=== PATIENT | female | born 1980 | race Two or more races ===

== ENCOUNTER 2021-12-13 20:44 | Emergency (ER) | payer OTHER, SELFPAY ==
--- NOTE | ~2021-12-13 | XR_ITS ---
EXAMINATION: XR CHEST CLINICAL INFORMATION: Cough COMPARISON: None TECHNIQUE: Frontal view of the chest was obtained. FINDINGS: No significant abnormality is noted involving the heart, lungs, mediastinum, bony thorax or soft tissues. XR/XR chest 1V IMPRESSION: Unremarkable examination.
[2021-12-13 20:47] VITALS: BP 136/89; PULSE 88; RESP 18; TEMP 36.7; O2SAT 99; BMI 38.7
[2021-12-13 21:12] LABS: COVID-19 Test Negative (Negative)
--- NOTE | 2021-12-13 21:15 | ED_ITS ---
HPI - URI/Sore Throat General Chief Complaint: Upper Respiratory Symptoms Stated Complaint: ?Bronchitis Time Seen by Provider: 12/13/21 21:14 History of Present Illness HPI Narrative: Patient is a 41-year-old female presented with coughing upper respiratory symptoms ongoing for the last 2 days. Cough nonproductive in nature. No history of asthma. Patient had her COVID vaccine x2. Positive generalized malaise. No nausea no vomiting or diarrhea. Patient from home. No significant past medical history on no medication. MD elicited complaint: cough and nasal congestion Related Data Previous Rx's Medication Instructions Recorded azithromycin 250 mg tablet See Rx Instructions .ROUTE 12/13/21 .COMPLEX #6 tab Allergies Allergy/AdvReac Type Severity Reaction Status Date / Time No Known Allergies Allergy Verified 12/13/21 20:47 Review of Systems Verdana 4l Review of Systems: Verdana 4d Positive coughing upper Verdana 4d respiratory symptoms Positive generalized malaise Verdana 4d Yes all other systems are reviewed and are negative [facility] Past Medical History Attestation statement: The following information was validated with the patient. Social History Social History Advance Directives: No Advance Directives Information Provided: No Patient : No Physical Exam Verdana 4l Vital Signs: Verdana 4d Verdana 4d Vital Signs: Verdana 4d Verdana 4Bd Last Vital Signs Verdana 4d Private Duty Aide New 4d Private Duty Aide New 4d Temp 98.1 F 12/13/21 20:47 Private Duty Aide New 4d Pulse 88 12/13/21 20:47 Private Duty Aide New 4d Resp 18 12/13/21 20:47 BP 136/89 12/13/21 20:47 Pulse Ox 99 12/13/21 20:47 BMI result Body Mass Index 38.7 Appearance: Alert. Oriented X3. No acute distress. Eyes: Pupils equal, round and reactive to light. ENT: Pharynx normal. Neck: Normal inspection. Neck supple. No lymph nodes noted. No crepitus CVS: Normal heart rate and rhythm. Pulses normal. Normal S1 and S2 Respiratory: No respiratory distress. Breath sounds normal. No Wheezing. No rales Abdomen: Soft and nontender. No rigidity. No distention. good BS x4 Skin: Skin warm and dry. Normal skin color. Normal skin turgor. Extremities: No lower extremity edema. Neurovascular intact to all extremities. No Lacerations. No Rash Neuro: Oriented X 3. No motor deficit. No sensory deficit. Moving all extermities. No slurred speech MDM - URI/Sore Throat MDM Narrative Medical decision making narrative: O2 sat is 99% on room air. Patient in no distress. Chest x-ray showed no focal infiltrate. Patient's COVID test was negative question bronchitis will discharge patient home. A Z-Miki was given. In stable condition Differential Diagnosis Differential diagnosis: Likely upper respiratory infection Medical Records Attestation: I reviewed the patient's medical records. Lab Data Attestation: I reviewed the patient's lab results. Labs: Lab Results 12/13/21 Range/Units 20:53 COVID-19 (JETHRO) Negative (Negative) COVID-19 Clin Com See Note Discharge Plan Discharge Clinical Impression: Bronchitis Patient Disposition: Home, Self-Care Instructions: Acute Bronchitis (ED) Prescriptions: New azithromycin 250 mg tablet See Rx Instructions .ROUTE .COMPLEX Qty: 6 0RF Rx Instructions: take 500 mg today (day 1), then 250 mg for 4 days (days 2-5) Referrals: Physician,Unknown J [Primary Care Provider] - 2 days
== END 2021-12-13 21:56 | disposition home or self-care (01) ==
PROVIDERS: Emergency Provider Emergency Medicine Emergency Medical Services
DX: J40 Bronchitis, not specified as acute or chronic (principal); Z20.822 Contact with and (suspected) exposure to COVID-19; Z79.899 Other long term (current) drug therapy
CPT/HCPCS: 71045; 87635; 99283

== ENCOUNTER 2024-08-28 14:27 | Outpatient (AMB) | payer OTHER, SELFPAY ==
--- NOTE | 2024-08-28 14:37 | AM.OFFWIN_ITS ---
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 Intake Note: Patient here for burning when urinating, foul smell which has been going on si nce . Patient Tobacco Use Status: Never used Tobacco Allergies No Known Allergies Allergy (Verified 08/28/24 14:44) Do you need a note to return to daycare/school/sports/work: No HPI HPI Comments History of Present Illness Details 43 y/o female patient who presents to [facility] walk in clinic with c/o urinary symptoms since . Reports Dsyuria, frequency and foul odor. Denies fevers, chills, nausea or vomiting. PFSH Social History Patient Tobacco Use Status: Never used Tobacco Review of Systems Const All systems reviewed & are unremarkable except as noted in HPI and below Physical Exam Vital Signs: Last Vital Signs Pulse 79 08/28/24 14:43 BP 138/70 08/28/24 14:43 Pulse Ox 100 08/28/24 14:43 Oxygen Delivery Method Room Air 08/28/24 14:43 BMI result Body Mass Index 26.5 Const General: cooperative and no acute distress Nutritional Appearance: overweight Orientation/consciousness: patient oriented x3 Other: Deferred Pelvic exam General: Yes no CVA tenderness Back/Spine/Pelvis Back: no CVA tenderness Skin General skin exam: no rashes or lesions noted Neuro General: patient oriented x3, gait normal and moves all extremities Psych Speech and movement: Normal speech and movement present Results AMB Urinalysis, Automated UA Leukoctes 0 Fredo/uL Last Edit by CATALINA Sparks on 08/28/24 14:49 UA Nitrite Negative Last Edit by CATALINA Sparks on 08/28/24 14:49 UA Urobilinogen 0.2 mg/dL Last Edit by CATALINA Sparks on 08/28/24 14:49 UA Protein 15 mg/dL Last Edit by CATALINA Sparks on 08/28/24 14:49 UA pH 6.0 Last Edit by CATALINA Sparks on 08/28/24 14:49 UA Blood 0 Theron/uL Last Edit by CATALINA Sparks on 08/28/24 14:49 UA Specific [place] 1.015 Last Edit by CATALINA Sparks on 08/28/24 14:49 UA Ketone Negative Last Edit by Eduard Zayas CCM on 08/28/24 14:49 UA Bilirubin 0 mg/dL Last Edit by Eduard Zayas [facility] on 08/28/24 14:49 UA Glucose 0 mg/dL Last Edit by Eduard Zayas [facility] on 08/28/24 14:49 Results Reviewed Results Reviewed: Laboratory Last Values Urine pH (Auto) 6.0 08/28/24 14:48 Specific [place] (Auto) 1.015 08/28/24 14:48 Urine Protein (Auto) 15 mg/dL 08/28/24 14:48 Glucose (UA)(Auto) 0 mg/dL 08/28/24 14:48 Urine Ketones (Auto) Negative 08/28/24 14:48 Urine Blood (Auto) 0 Theron/uL 08/28/24 14:48 Urine Nitrite (Auto) Negative 08/28/24 14:48 Urine Bilirubin (Auto) 0 mg/dL 08/28/24 14:48 Urine Urobilinogen (Auto) 0.2 mg/dL 08/28/24 14:48 Leukocyte Esterase (Auto) 0 Fredo/uL 08/28/24 14:48 Assessment & Plan Assessment & Plan (1) Urinary tract infection symptoms: Code(s): R39.9 - Unspecified symptoms and signs involving the genitourinary system Plan: Rapid Urinalysis negative. Advised to increase water intake Advised to take AZO OTC. Orders: Orders AMB Urinalysis Automated Today Z13.9 - Encounter for screening, unspecified Medications: Discontinued azithromycin Discontinued Reason: Patient Completed Course take 500 mg today (day 1), then 250 mg for 4 days (days 2-5) 6 tabs 0RF upper resp infection Coding Level of Care Code Est Pt Level 3 (59643) Diagnoses Urinary tract infection symptoms R39.9 Time Spent (min) 15
[2024-08-28 14:43] VITALS: BP 138/70; PULSE 79; O2SAT 100; BMI 26.5
== END 2024-08-28 15:25 | disposition home or self-care (01) ==
PROVIDERS: Visit Provider Nurse Practitioner Family
DX: Z13.9 Encounter for screening, unspecified (principal); R39.9 Unspecified symptoms and signs involving the genitourinary system

== ENCOUNTER → 2024-08-28 14:27 | Outpatient (BNVA) | payer OTHER, SELFPAY | PROVIDERS: Visit Provider Nurse Practitioner Family | DX: R39.9 Unspecified symptoms and signs involving the genitourinary system (principal) | CPT/HCPCS: 81003 ==

== ENCOUNTER 2025-10-04 21:44 | Emergency (ER) | payer OTHER, SELFPAY ==
--- OUTSIDE RECORDS SUMMARY | 2024-07-27 09:40 | XMS_ITS ---
Author Organization [facility] [employer] [facility] Address [address] [address] Care Team Providers Care Microbiology Technologist Name Role Phone GIGI Coelho, DENI Primary Care Provider Unavail able YONATHAN ESTRADA Unavailable [phone] REASON FOR VISIT ULTRA - HYPERTROPHY OF UTERUS Encounters Encounter Location Date Provider Diagnosis [facility] [employer] [facility] [address] [address] 07/27/2024 YONATHAN ESTRADA Plan Of Treatment No Information Progress Notes * LAVONNE SAMUELSADOB:1980 ([age] yo F)Acc No.[id number]:07/27/2024 PROGRESS NOTES Patient: ENOCH BAÑUELOS Provider: Sarah ESTRADA MD :1980 A ge:43 Y S ex:Female Date:07/27/2024 Address:[address] [place] [address] Pcp:DENI YU M.D. Subjective: * Chief Complaints: * 1 . ULTRA - HYPERTROPHY OF UTERUS. * Medical History: Objective: * Vitals: Assessment: Plan: * Treatment: * Images: Billing Information: * Visit Code: * Procedure Codes: * Electronic signature of YONATHAN ESTRADA MD on 10/04/2025 at 10:34 PM EST Sign off status: Pending * Provider: Sarah ESTRADA MD Date: 0 07/27/2024 Generated for Printi ng/Faxing/eTransmitting on: 1 12/04/2024 10:34 PM EST
--- OUTSIDE RECORDS SUMMARY | 2024-07-30 09:20 | XMS_ITS ---
Author Organization [employer] [facility] Address [address] [address] Care Team Providers Care Tray Delivery Aide Name Role Phone GIGI Coelho, DENI Primary Care Provider Unavail able YONATHAN ESTRADA Unavailable [phone] REASON FOR VISIT CONTRACEPTION TALK OPTIONS Encounters Encounter Location Date Provider Diagnosis [facility] [employer] [address] [address] 07/30/2024 YONATHAN ESTRADA Plan Of Treatment No Information Progress Notes * LAVONNE SAMUELSADOB:1980 ([age] yo F)Acc No.[id number]:07/30/2024 PROGRESS NOTES Patient: ENOCH BAÑUELOS Provider: Sarah ESTRADA MD :1980 A ge:43 Y S ex:Female Date:07/30/2024 Address:[address] [place] [address] Pcp:DENI YU M.D. Subjective: * Chief Complaints: * 1 . CONTRACEPTION TALK OPTIONS. * Medical History: Objective: * Vitals: Assessment: Plan: * Treatment: * Images: Billing Information: * Visit Code: * Procedure Codes: * Electronic signature of YONATHAN ESTRADA MD on 10/04/2025 at 10:34 PM EST Sign off status: Pending * Provider: Sarah ESTRADA MD Date: 0 07/30/2024 Generated for Aries armas/Chasity/eTransmitting on: 1 12/04/2024 10:34 PM EST
--- OUTSIDE RECORDS SUMMARY | 2024-09-25 09:30 | XMS_ITS ---
Author Organization [facility] Address [address] [place] [address] Care Team Providers Care Environmental Research Project Manager Name Role Phone GIGI Coelho, DENI Primary Care Provider Unavail able ESTRADA, LISA Unavailable [phone] REASON FOR VISIT CONTROL TALK Encounters Encounter Location Date Provider Diagnosis [facility] [address] [address] 09/25/2024 YONATHAN ESTRADA Encounter for other general counseling and advice on contraception Z30.09 Assessments Encounter Date Diagnosis (ICD Code) Assessment Notes Treatment Notes Treatment Clinical Notes Section Notes 09/25/2024 Encounter for other general counseling and advice on contraception (ICD-10 - Z30.09) Plan Of Treatment No Information Progress Notes * LAVONNE SAMUELSADOB:1980 ([age] yo F)Acc No.[id number]:09/25/2024 PROGRESS NOTES Patient: ENOCH BAÑUELOS Provider: Sarah ESTRADA MD :1980 A ge:43 Y S ex:Female Date:09/25/2024 Address:[address] [place], [place] [id number] Pcp:DENI YU M.D. Subjective: * Chief Complaints: * 1 . CONTROL TALK. * HPI: C onstitutional: Enoch is a 43 yo who was recently evaluated for heavy, painful menses and an enlarged uterus. The ultrasound showed a uterus measuring 7.8 x 7.3 x 7.6cm, with a cervical length of 3.5. The uterus also showed likely adenomyosis and a 3.7cm intramural fibroid. There were also 2 smaller subserosal fibroids, each smaller than 2cm. She is here to discuss options for improving her painful, heavy menses. Current contraception method: none, and she'd prefer to not be . She is not happy with her current method - she has heavy, painful menses. During the visit, the following areas of concern were addressed: Options discussed include combined oral contraceptive pills (estrogen/progesterone), progesterone only contraceptive pills, Ortho Evra patch, NuvaRing vaginal inserts, Depo-Provera injections, Implanon/Nexplanon, and IUDs as well as barrier options (male & female condoms, diaphragms) and periodic abstinence. Sterilization was also discussed. The risks and side effects of the methods and the relative risk/benefit ratio were discussed for each. She was advised of the importance of maintaining a monogamous relationship, and should discuss this with her partner, as well. She is also advised to continue using condoms with every sexual encounter to prevent infections. HORMONAL METHOD She was instructed in the proper initiation of the method and how to use, as well as the following side effects and potential complications, including headaches, nausea, irregular breakthrough bleeding for a few months, weight gain, risk of DVT, migraine headaches, cholelithiasis, hypertension. DEPOPROVERA Patient is counseled on Depo Provera, including: side effects, warning signs, frequency of injections and contraceptive protection for up to 13 weeks. She is aware that Depo-Provera will change her periods. It may cause irregular menses or unpredictable spotting for up to 6 months but 50% of women report amenorrhea after 1 year. Noncontraceptive benefits including less menstrual blood loss and decreased menstrual cramps. Potential side effects include weight gain, hair loss, depression (rare), localized pain and irritation. She is aware that there is risk of weight gain and counseled on importance of exercise and good food choices. Warnings including terminal manager use >2 years for increased risk to bone health. Reviewed the importance of avoiding smoking and adequate calcium intake in diet or calcium supplementation such as TUMS daily. Calcium is best absorbed late in the day with a glass of orange juice. She is aware fertility may be delayed after discontinuation of Depo (average of 10 months after last injection). She is aware she will need to go to the pharmacy to chicken picker medication. Counseled that the preferred start is during first 7 days from the start of menses. NEXPLANON: The risks of insertion were discussed, including but not limited to scar formation and infection. The likelihood of menstrual changes, such as irregular bleeding and amenorrhea were discussed. Other possible side effects such as mood swings, weight gain/loss, headaches and depression were discussed. Counseled that the preferred start is during first 7 days from the start of menses. IUD: She was instructed that this is best inserted at the end of a menses, and that she should call at the beginning of her next menses to make an appointment for insertion. DNA probe for chlamydia and gonorrhea was taken at this visit. Side effects and potential complications were discussed with her, including irregular bleeding, cramping, vaginal discharge, possibility of discomfort for partner during intercourse from strings, heavier or boat diesel motor mechanic menses, expulsion of IUD, uterine perforation with loss of IUD and potential for surgical removal, ectopic or tubal , infection with potential loss of future fertility. All questions answered to the patient's satisfaction. After careful consideration, she has chosen as her method of contraception. The total time of this visit was 30 minutes of which we spent 20 minutes in direct [id number] consultation discussing contraceptive options, preventing STDs and and the plan of care. * Medical History: P anic disorder [episodic paroxysmal anxiety], Polycystic ovarian syndrome, COVID- 19, Cervical high risk human papillomavirus (HPV) DNA test positive, Hypertrophy of uterus, Atypical squamous cells of undetermined significance on cytologic smear of cervix (ASC-US), Chlamydial infection, unspecified. Objective: * Vitals: Assessment: * Assessment: 1. E ncounter for other general counseling and advice on contraception - Z30.09 (Primary) ? Plan: * Treatment: * Images: Billing Information: * Visit Code: * Procedure Codes: * Electronic signature of YONATHAN ESTRADA MD on 10/04/2025 at 10:33 PM EST Sign off status: Pending * Provider: Sarah ESTRADA MD Date: 11/25/2023 Generated for Aries armas/Chasity/Aleksandraitting on: 12/04/2024 10:33 PM EST History and Physical Notes * HPI (History of Present Illness) Category Sub-Category Detail Notes Category Not es Constitutional Current contraception method: none, and she'd prefer to not be . She is not happy with her current method - she has heavy, painful menses. During the visit, the following areas of concern were addressed: Options discussed include combined oral contraceptive pills (estrogen/progesterone), progesterone only contraceptive pills, Ortho Evra patch, NuvaRing vaginal inserts, Depo-Provera injections, Implanon/Nexplanon, and IUDs as well as barrier options (male & female condoms, diaphragms) and periodic abstinence. Sterilization was also discussed. The risks and side effects of the methods and the relative risk/benefit ratio were discussed for each. She was advised of the importance of maintaining a monogamous relationship, and should discuss this with her partner, as well. She is also advised to continue using condoms with every sexual encounter to prevent infections. HORMONAL METHOD She was instructed in the proper initiation of the method and how to use, as well as the following side effects and potential complications, including headaches, nausea, irregular breakthrough bleeding for a few months, weight gain, risk of DVT, migraine headaches, cholelithiasis, hypertension. DEPOPROVERA Patient is counseled on Depo Provera, including: side effects, warning signs, frequency of injections and contraceptive protection for up to 13 weeks. She is aware that Depo-Provera will change her periods. It may cause irregular menses or unpredictable spotting for up to 6 months but 50% of women report amenorrhea after 1 year. Noncontraceptive benefits including less menstrual blood loss and decreased menstrual cramps. Potential side effects include weight gain, hair loss, depression (rare), localized pain and irritation. She is aware that there is risk of weight gain and counseled on importance of exercise and good food choices. Warnings including terminal manager use >2 years for increased risk to bone health. Reviewed the importance of avoiding smoking and adequate calcium intake in diet or calcium supplementation such as TUMS daily. Calcium is best absorbed late in the day with a glass of orange juice. She is aware fertility may be delayed after discontinuation of Depo (average of 10 months after last injection). She is aware she will need to go to the pharmacy to chicken picker medication. Counseled that the preferred start is during first 7 days from the start of menses. NEXPLANON: The risks of insertion were discussed, including but not limited to scar formation and infection. The likelihood of menstrual changes, such as irregular bleeding and amenorrhea were discussed. Other possible side effects such as mood swings, weight gain/loss, headaches and depression were discussed. Counseled that the preferred start is during first 7 days from the start of menses. IUD: She was instructed that this is best inserted at the end of a menses, and that she should call at the beginning of her next menses to make an appointment for insertion. DNA probe for chlamydia and gonorrhea was taken at this visit. Side effects and potential complications were discussed with her, including irregular bleeding, cramping, vaginal discharge, possibility of discomfort for partner during intercourse from strings, heavier or boat diesel motor mechanic menses, expulsion of IUD, uterine perforation with loss of IUD and potential for surgical removal, ectopic or tubal , infection with potential loss of future fertility. All questions answered to the patient's satisfaction. After careful consideration, she has chosen as her method of contraception. The total time of this visit was 30 minutes of which we spent 20 minutes in direct [id number] consultation discussing contraceptive options, preventing STDs and and the plan of care.
--- OUTSIDE RECORDS SUMMARY | 2024-10-16 09:30 | XMS_ITS ---
[facility] Address [address] [address] Care Team Providers Care Deputy Harbormaster Name Role Phone DENI YU M.D. Primary Care Provider Unavail able ESTRADA YONATHAN Unavailable [phone] REASON FOR VISIT CONTROL TALK Medications Medication SIG (Take, Route, Frequency, Duration) Notes Start Date End Date Status Mounjaro 10 MG/0.5ML Subcutaneous; Durat ion: 28 Days Active Citalopram Hydrobromide 20 MG Oral; Duration: 60 Days Acti ve Bactrim DS 800-160 MG 1 tablet Orally TW ICE A DAY; Duration: 7 days 09/03/2024 Active metroNIDAZOLE 0.75 % 1 applicatorful at bedtime Vaginal ONCE A NIGHT X 5; Duration: 5 days 08/30/2024 Active Problems Problem Type SNOMED Code ICD Code Onset Dates Problem Status W/U Status Risk Notes Problem Excessive and frequent menstruation (026260379) Excessive and frequent menstruation with regular cycle (N92.0) Active confirmed Encounters Encounter Location Date Provider Diagnosis [facility] [address] 10/16/2024 YONATHAN ESTRADA Excessive and freque nt menstruation with regular cycle N92.0 Assessments Encounter Date Diagnosis (ICD Code) Assessment Notes Treatment Notes Treatment Clinical Notes Section Notes 10/16/2024 Excessive and frequent menstruation with regular cycle (ICD-10 - N92.0) 10/16/2024 Other LYSTEDA: The following adverse drug reactions and incidences are derived from product labeling unless otherwise specified. As reported with oral formulation unless otherwise noted. More than 10%: - Gastrointestinal: Abdominal pain (20%) - Nervous system: Headache (50%) - Neuromuscular & skeletal: Back pain (21%), musculoskeletal pain (11%) - Respiratory: Nasal signs and symptoms (25%; including sinus symptoms) 1% to 10%: - Hematologic & oncologic: Anemia (6%) - Nervous system: Fatigue (5%) - Neuromuscular & skeletal: Arthralgia (7%), muscle cramps ( =7%), muscle spasm (=7%) Plan Of Treatment Treatment Notes Assessment Notes Other LYSTEDA: The following adverse drug reactions and incidences are derived from product labeling unless otherwise specified. As reported with oral formulation unless otherwise noted. More than 10%: - Gastrointestinal: Abdominal pain (20%) - Nervous system: Headache (50%) - Neuromuscular & skeletal: Back pain (21%), musculoskeletal pain (11%) - Respiratory: Nasal signs and symptoms (25%; including sinus symptoms) 1% to 10%: - Hematologic & oncologic: Anemia (6%) - Nervous system: Fatigue (5%) - Neuromuscular & skeletal: Arthralgia (7%), muscle cramps ( =7%), muscle spasm (=7%) Progress Notes * LAVONNE SAMUELSADOB:1980 ([age] yo F)Acc No.[id number]:10/16/2024 PROGRESS NOTES Patient: ENOCH BAÑUELOS Provider: Sarah ESTRADA MD :1980 A ge:43 Y S ex:Female Date:10/16/2024 Address:[address] [place] [address] Pcp:DENI YU M.D. Subjective: * Chief Complaints: [...] her painful, heavy menses. Current contraception method: none. Relationship status: . She does agree to have STI testing. During the visit, the following areas of [...] exercise and good food choices. 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 Counseled that the preferred start is [...] partner during intercourse from strings, heavier or print and pattern designer menses, expulsion of IUD, uterine perforation with loss of IUD and potential for surgical removal, ectopic or tubal , infection with potential loss of future fertility. All questions answered to the patient's satisfaction. L YSTEDA: This will not prevent The following adverse drug reactions and incidences are derived from product labeling unless otherwise specified. As reported with oral formulation unless otherwise noted. More than 10%: - Gastrointestinal: Abdominal pain (20%) - Nervous system: Headache (50%) - Neuromuscular & skeletal: Back pain (21%), musculoskeletal pain (11%) - Respiratory: Nasal signs and symptoms (25%; including sinus symptoms) 1% to 10%: - Hematologic & oncologic: Anemia (6%) - Nervous system: Fatigue (5%) - Neuromuscular & skeletal: Arthralgia (7%), muscle cramps ( =7%), muscle spasm (=7%). * Medical History: * Medications: T aking Citalopram Hydrobromide 20 MG Tablet Oral , Taking Mounjaro 10 MG/0.5ML Solution Pen-injector Subcutaneous , Taking metroNIDAZOLE 0.75 % Gel 1 applicatorful at bedtime Vaginal ONCE A NIGHT X 5 , Taking Bactrim DS 800-160 MG Tablet 1 tablet Orally TWICE A DAY Objective: * Vitals: Assessment: * Assessment: 1. E xcessive and frequent menstruation with regular cycle - N92.0 Plan: * Treatment: * Images: Billing Information: * Visit Code: * Procedure Codes: * Electronic signature of YONATHAN ESTRADA MD on 10/04/2025 at 10:33 PM EST Sign off status: Pending * Provider: Sarah ESTRADA MD Date: 12/17/2023 Generated for Aries armas/Chasity/Hannahsmitting on: 12/04/2024 10:33 PM EST History and Physical Notes * HPI (History of Present Illness) Category Sub-Category Detail Notes Category Not es Constitutional Current contraception method: none. Relationship status: . She does agree to have STI testing. During the visit, the following areas of [...] exercise and good food choices. 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 Counseled that the preferred start is [...] partner during intercourse from strings, heavier or print and pattern designer menses, expulsion of IUD, uterine perforation with loss of IUD and potential for surgical removal, ectopic or tubal , infection with potential loss of future fertility. All questions answered to the patient's satisfaction. LYSTEDA: This will not prevent The following adverse drug reactions and incidences are derived from product labeling unless otherwise specified. As reported with oral formulation unless otherwise noted. More than 10%: - Gastrointestinal: Abdominal pain (20%) - Nervous system: Headache (50%) - Neuromuscular & skeletal: Back pain (21%), musculoskeletal pain (11%) - Respiratory: Nasal signs and symptoms (25%; including sinus symptoms) 1% to 10%: - Hematologic & oncologic: Anemia (6%) - Nervous system: Fatigue (5%) - Neuromuscular & skeletal: Arthralgia (7%), muscle cramps ( =7%), muscle spasm (=7%)
[2025-10-04 21:52] VITALS: BP 136/81; PULSE 88; RESP 18; TEMP 36.4; O2SAT 99; BMI 24.8
--- NOTE | 2025-10-04 22:22 | ED.SKABFB ---
HPI - Skin/Abscess/Foreign Bdy General Chief complaint: Skin/Abscess/Foreign Body Stated complaint: Right middle finger infection Time Seen by Provider: 10/04/25 22:14 History of Present Illness ED Provider: Marilyn Mckeon HPI narrative: 44-year-old female with medical history significant for eczema presents to the ED for evaluation reporting 3 days of right middle finger swelling, redness and pain. She went to the urgent care center today because she noticed a small little pustules on the inside of her finger, and was given valacyclovir, Keflex, and mupirocin ointment. She reports she has taken 1 dose of these medications, but noted some increase in swelling and therefore she comes to the ED today. Denies fever, chills. No chest pain or pressure. No shortness of breath or abdominal pain. And tingling in the fingertip. She is fully able to extend and flex the finger. Reports concern with pain due to swelling, also reports it is still currently itching. Did not take anything for itching prior to ER arrival. Related Data Home Medications ?Medication ?Instructions ?Recorded ?Confirmed tirzepatide 10 mg/0.5 mL 10 mg subcut QWEEK 08/28/24 subcutaneous pen injector (Faviounmeg) Previous Rx's ?Medication ?Instructions ?Recorded ketorolac 10 mg tablet 10 mg PO Q8H PRN pain 5 days #15 10/04/25 tabs Allergies Allergy/AdvReac Type Severity Reaction Status Date / Time No Known Allergies Allergy Verified 10/04/25 22:00 Review of Systems Review of Systems: ROS is otherwise negative unless mentioned in HPI. [facility] Social History Social History Patient Tobacco Use Status: Never used Tobacco Advance Directives: No Advance Directives Information Provided: Yes Do you have a plan to hurt others: No Plan Physical Exam Exam: Exam: Nursing notes and vital signs reviewed. Constitutional: Well-appearing, NAD. Alert. Oriented X3. Eyes: EOMI. Neck: Normal inspection. Neck supple. CVS: Pulses normal. Respiratory: No respiratory distress. Skin: Skin warm and dry. Right hand middle finger with a pustule like rash. See photo. Mild streaking of redness to the top of the hand, does not extend past pre-drawn line. Extremities: No lower extremity edema. Neuro: Oriented X 3. No motor deficit. Vital Signs: Vital Signs: Last Vital Signs Temp 97.6 F 10/04/25 21:52 Pulse 88 10/04/25 21:52 Resp 18 10/04/25 21:52 BP 136/81 10/04/25 21:52 Pulse Ox 99 10/04/25 21:52 O2 Del Method Room Air 10/04/25 21:52 BMI result Body Mass Index 24.8 Medications Administered Discontinued Medications Generic Name Dose Route Start Last Admin Trade Name [place] PRN Reason Stop Dose Admin Diphenhydramine HCl 50 mg 10/04/25 22:28 10/04/25 22:36 Diphenhydramine Hcl 25 Mg Capsule PO 10/04/25 22:29 50 mg ONCE ONE Administration Ketorolac Tromethamine 30 mg 10/04/25 22:24 10/04/25 22:36 Ketorolac Tromethamine 30 Mg/Ml Vial IM 10/04/25 22:25 30 mg ONCE ONE Administration Medical Decision Making Medical Decision Making MDM Narrative: Overall she does appear well. The finger is swollen, there are small pustules. She tells me she took 1 dose of the antibiotics, has not taken anymore doses yet today, is scheduled to start taking more tomorrow. Reports that the finger is more swollen than it was earlier, and not as why she came back to the ED. No fever or chills. She is currently on valacyclovir, Keflex, and mupirocin topical ointment. This would cover all my suspected infections, and therefore she does not require any additional treatment. I did consider lab work, x-ray, however there was no trauma to the finger, she was itching it initially and likely opened the skin due to itching creating a wound, now in infection. She needs a full 24 hours of antibiotics, and has not yet given those time to work. We will administer a dose of Toradol IM while in the ED and discharge home on this medication for pain control. We discussed extensively return precautions to the ED, she is agreeable with plan of care. Differential Diagnosis Differential Diagnoses: The differential diagnosis associated with the presentation includes Flexor tenosynovitis, herpes rash, shingles rash, osteomyelitis, cellulitis, felon Admission/Observation Consideration of admission/observation: Escalation of care including admission/observation considered (not indicated) Independent Interpretation Interpretation: None Independent Historian Clinical information obtained from an independent historian. History obtained from or confirmed by: Spouse (at bedside) External Record Review External record reviewed: Office record (on paperwork, with patient) Prescription Management Has active script for abx-- does not require additional Chronic Conditions Patient?s care impacted by: Other (eczema) Social Determinants None Discharge Plan Discharge Clinical Impression: Cellulitis of finger of right hand Patient Disposition: Home, Self-Care Instructions: Cellulitis (ED) Additional Instructions: As we discussed, if you are unable to flex or extend the finger, the finger becomes more swollen or painful, you develop any extension of redness past the line on your finger, develop any fevers or chills, it is very important that you seek re-evaluation in the ED. Otherwise, we would like for you to use the antibiotics as prescribed to you by urgent care today. I have prescribed you a short course of Toradol that can be used as needed for pain, you may also use this in conjunction with oral Tylenol. In the ER we gave you a dose of Benadryl for the itching, you may use nondrowsy antihistamine such as Claritin, Zyrtec for the itching as well outpatient. Please follow up on Tuesday with a hand specialist. With any worsening complaints at any time, please seek re-evaluation in the ED. Prescriptions: New ketorolac 10 mg tablet 10 mg PO Q8H PRN (Reason: pain) 5 Days Qty: 15 0RF Rx Instructions: maximum total duration of 5 days from all oral, intranasal, or parenteral formulations No Action Mounjaro 10 mg/0.5 mL pen injector 10 mg subcut QWEEK Referrals: [facility] [Provider Group] Print Language: Japanese
--- OUTSIDE RECORDS SUMMARY | 2025-10-04 22:33 | XMS_ITS | Encounter Summary ---
[facility] [address] Address [address] [place] [address] Care Team Providers Care Industrial Economics Professor Name Role Phone Amanda Bethea MD Primary Care Provider [phone] Encounter Details Date Type Department Care Team ([facility] Contact Info) Description 09/10/2025 Results Follow-Up Walk-In Clinic - [facility] [address] [place], [place] [phone] Haja Buchanan, VANESA [address] [place] [address] Social History Tobacco Use Types Packs/Day Years Used Date Smoking Tobacco: Never Smokeless Tobacco: Never Alcohol Use Standard Drinks/Week Comments Yes 0 (1 standard drink = 0.6 oz pur e alcohol) Interpersonal Safety Answer Date Record ed Physical Abuse Unrecognized value 08/09/2025 Verbal Abuse Unrecognized value 08/09/2025 Comments No Sex and Gender Information Value Date Recorded Sex Assigned at Female 08/09/2025 6:53 AM EDT Legal Sex Female 11:43 PM EST Gender Identity Female 08/09/2025 6:53 AM EDT Sexual Orientation Not on file documented as of this encounter Plan of Treatment Upcoming Encounters Date Type Department Care Team ([facility] Contact Info) Description 03/06/2026 4:20 PM EDT Appointment Radiology Department - [address] [address] documented as of this encounter Visit Diagnoses Not on filedocumented in this encounter Care Teams Industrial Economics Professor Relationship Specialty Start Date End Date Amanda Bethea MD [address] [place] [address] PCP - General Internal Medicine 05/05/22 documented as of this encounter
--- OUTSIDE RECORDS SUMMARY | 2025-10-04 22:33 | XMS_ITS | Clinical Summary ---
Author Organization [facility] [address] [place] [address] Address [address] [place] [address] Phone Care Team Providers Care Print Finisher Name Role Phone Amanda Bethea MD Primary Care Provider [phone] Allergies No known active allergies Medications ferrous sulfate 325 mg (65 mg elemental iron) tablet TAKE 1 TABLET BY MOUTH EVERY DAY 4 Active tirzepatide (Mounjaro) 10 mg/0.5 mL injection Inject into the skin. Weight watchers Active citalopram (CeleXA) 20 mg tablet Take 1.5 tablets (30 mg total) by mouth 1 (one) time each day. 135 tablet 1 5 Active hydrOXYzine HCL (ATARAX) 10 mg tablet Take 1 tablet (10 mg total) by mouth 1 (one) time each day if needed for anxiety. 90 tablet 1 5 Active polyethylene glycol (Golytely) 236-22.74-6.74 -5.86 gram solution Take 4L by mouth once for one dose. May substitue any PEG. Starting at 2PM the day before your procedure drink 1 8oz glasses at your own pace until you complete half of the gallon. Finish 2nd half of the gallon at 8PM. 4000 mL 5 Active bisacodyL (DULCOLAX) 5 mg EC tablet Take 2 tablets by mouth right before beginning bowel prep. See instructions provided by the office 2 tablet 5 Active pantoprazole (PROTONIX) 40 mg EC tablet TAKE 1 TABLET(40 MG) BY MOUTH 1 TIME EACH DAY BEFORE BREAKFAST. DO NOT CRUSH, CHEW, OR SPLIT 30 tablet 5 Active phenazopyridin e (PYRIDIUM) 100 mg tablet Take 1 tablet (100 mg total) by mouth 3 (three) times a day with meals for 3 days. 9 tablet 5 09/11/20 25 metroNIDAZOLE (FLAGYL) 500 mg tabletIndicati ons:Bacterial vaginitis Take 1 tablet (500 mg total) by mouth 2 (two) times a day for 7 days. Do not use mouth wash or consume alcohol until 48 hours after last dose 14 each 5 09/17/20 25 Active Problems Problem Noted Date Diagnosed Date Night sweats 03/21/2025 Assessment & Plan (03/21/2025 3:42 PM EDT): Will obtain labs including FSH, estradiol, and prolactin. Patient is aware that this is not diagnostic for menopause, but could give information on what is likely perimenopause. We discussed medical management of sx, but she is not interested in starting anything at this time. Generalized anxiety disorder 02/21/2025 PCOS (polycystic ovarian syndrome) 09/21/2024 Assessment & Plan (03/21/2025 3:41 PM EDT): As long as having a period every 3 months at least, no need for hormones. Class 1 obesity due to exces s calories with body mass index (BMI) of 31.0 to 31.9 in adult 09/21/2024 History of sleeve gastrectomy 07/12/2022 Overview (03/21/2025): 07/09/22 Eating disorder, unspecified 04/09/2022 Overview (09/21/2024): Rebekah Lucero PhD Snoring 06/30/2021 Overview (09/21/2024): 06/2021 Home Sleep Study did not reveal sleep apnea or nocturnal hypoxia. Migraines 03/25/2020 Overview (09/21/2024): Follows with neurology (leela) B12 deficiency 04/19/2017 Iron deficiency anemia due to chronic blood loss 04/19/2017 Dyslipidemia 05/28/2016 Tattoo of skin 03/10/2015 Infertility associated with anovulation 02/22/20 14 Overview (09/21/2024): Followed at [facility] Encounters Date Type Department Care Team Description 09/10/2025 [facility] [phone] Haja Buchanan NP 09/10/2025 Results Follow-Up Walk-In Clinic - [address] [phone] Haja Buchanan NP 09/10/2025 Telephone Walk-In Clinic - [address] [phone] Jesus Ramsey PA 09/08/2025 10:00 AM EDT Office Visit Walk-In Clinic - [address] [phone] Jesus Ramsey PA Urinary frequency (Primary Dx); Dysuria 08/13/2025 Telephone Gastroenterology - [address] [phone] Luis Felipe Ontiveros MD 08/12/2025 Results Follow-Up Gastroenterology - [address] [phone] Angela Buckner MA 08/12/2025 Results Follow-Up Gastroenterology - [address] [phone] Luis Felipe Ontiveros MD 08/09/2025 8:16 AM EDT Anesthesia Event [facility] [address] [place] [phone] Haja Riggs DO 08/09/2025 6:56 AM EDT - 08/09/2025 11:59 PM EDT Hospital Encounter [facility] [address] [place] [address] Luis Felipe Ontiveros MD Decandio, Laura, CRNA Dasilva, John E, MD Abnormal UGI series; Colon cancer screening; S/P gastric sleeve procedure; Nausea Discharge Disposition: Home or Self Care 07/11/2025 2:40 PM EDT Consult Gastroenterology - [facility] [address] [facility] [address] [place] [address] Stephanie Escobedo NP Abnormal upper gastrointestinal barium series (Primary Dx); Gastroesophageal reflux disease, unspecified whether esophagitis present; Screening for colorectal cancer from Last 3 Months Immunizations Immunization Administration Dates Next Due Influenza trivalent, 0.5mL, preservative free (Fluarix; FluLaval; Fluzone) ages 6mo and older (Afluria) 3 years and older 08/24/2024,09/17/2020 Tdap Tetanus diptheria acell ular pertussis (Boostrix; Adacel) 7yo and older 03/10/2015 Surgical History Surgery Date Site/Laterality Comments SECTION 1995 PROCEDURE: HISTORICAL DELIVERY BREAST REDUCTION 2004 Bilateral PROCEDURE: AL BREAST REDUCTION; COMMENT: breast reduction surgery BARIATRIC SURGERY 07/09/2022 PROCEDURE: AL LAPS GSTRC RSTRICTIV PX LONGITUDINAL GASTRECTOMY; COMMENT: sleeve gastrectmy for bariatric care Medical History Medical History Date Comments PCOS (polycystic ovarian syndrome) DX:PCOS (polycystic ovarian syndrome); COMMENT: IVF at [facility] Infertility associated with anovulation DX:Infertility associated wi th anovulation Obesity (BMI 35.0-39.9 witho ut comorbidity) 04/25/2018 DX:Obesity (BMI 35.0-39.9 wi thout comorbidity) Mixed hyperlipidemia DX:Mixed hy perlipidemia Iron deficiency anemia DX:Iron d eficiency anemia Eating disorder, unspecified 04/09/2022 DX: Eating disorder, unspecified; COMMENT: Rebekah Lucero PhD B12 deficiency 04/19/2017 DX:B12 deficienc y Class 3 severe obesity due t o excess calories with body mass index (BMI) of 40.0 to 44.9 in adult (CMS/HCC V24, CMS/HCC V28) 05/10/2019 DX:Class 3 severe obesity du e to excess calories with body mass index (BMI) of 40.0 to 44.9 in adult ([facility]) Dyslipidemia 05/28/2016 DX:Dyslipidemia Migraines 03/25/2020 DX:Migraines; CO MMENT: Follows with neurology (leela) Personal history of COVID-19 02/23/2022 DX: Personal history of COVID-19 Snoring 06/30/2021 DX:Snoring; COMM ENT: 06/2021 Home Sleep Study did not reveal sleep apnea or nocturnal hypoxia. Tattoo of skin 03/10/2015 DX:Tattoo of ski n Severe obesity (BMI 35.0-39. 9) with comorbidity (CMS/HCC V24, CMS/HCC V28) 05/10/2019 DX:Severe obesity (BMI 35.0- 39.9) with comorbidity ([facility]) History of sleeve gastrectomy 07/12/2022 DX :History of sleeve gastrectomy; COMMENT: 07/09/22 Family History Medical History Relation Name Comments Breast cancer Maternal Grandmother Diabetes Maternal Grandmother Other: Lupus Sister 1 half paternal Colon cancer Neg Hx Heart attack Neg Hx Ovarian cancer Neg Hx Pancreatic cancer Neg Hx Prostate cancer Neg Hx Stroke Neg Hx Uterine cancer Neg Hx Relation Name Status Comments Brother 1 Alive healthy Brother 2 Alive half brothers x 2 (paternal); healthy Daughter Alive 1995; ; healthy Father Alive healthy Maternal Grandfather Alive unknown Maternal Grandmother [place] [address], DM Mother unknown Paternal Grandfather Paternal Grandmother Sister 1 Sister 2 Alive half sisters (p aternal) x 4; 1 with Lupus Social History Tobacco Use Types Packs/Day Years Used Date Smoking Tobacco: Never Smokeless Tobacco: Never Tobacco Cessation:Counseling Given: Not Answered Alcohol Use Standard Drinks/Week Comments Yes 0 [...] AM EDT Sexual Orientation Not on file Obstetrics History * This document contains information received from the source organization and may not represent a complete record from that organization. Para Term AB IAB SAB Ectopic Multiple Livin g Live Births 2 1 1 0 0 0 0 0 Date Outcome GA Total Labor Labor/2nd/3rd Weight Sex Type Anes PTL Pearl A1 A5 Name Clin Term Last Filed Vital Signs Vital Sign Reading Time Taken Comments Blood Pressure 108/70 09/08/2025 10:22 AM EDT Pulse 68 09/08/2025 10:22 AM EDT Temperature 36.4 C (97.6 F) 09/08/2025 10:22 AM EDT Respiratory Rate 14 08/09/2025 8:57 AM EDT Oxygen Saturation 99% 09/08/2025 10:22 AM EDT Inhaled Oxygen Concentration - - Weight 63.5 kg (140 lb) 08/09/2025 7:33 AM EDT Height 157.5 cm (5' 2 ) 08/09/2025 7:33 AM EDT Body Mass Index 25.61 08/09/2025 7:33 AM EDT Plan of Treatment Upcoming Encounters Date Type Department Care Team (Late st Contact Info) Description 03/06/2026 4:20 PM EDT Appointment Radiology Department [address] [phone] Health Maintenance Due Date Last Done Comments Hepatitis B Vaccines (1 of 3 - 19+ 3-dose series) 1998 HPV Vaccines (1 - 3-dose SCDM series) 2006 Social Influencers of Health Screening 10/23/2022 Depression Screening 11/14/2024 DTaP,Tdap,and Td Vaccines (2 - Td or Tdap) 03/10/2025 03/10/2015 COVID-19 Vaccine ( season) 2025 03/22/2022, 01/09/2021, 12/12/2020 Influenza Vaccine (#1) 2025 , 08/22/2023, 09/19/2022, Additional history exists Breast Cancer Screening 03/14/2027 03/14/20 25, 02/28/2025, 02/11/2024, Additional history exists Cervical Cancer Screening: Pap Smear 07/19/2027 07/19/2024, 04/19/2017 Cholesterol Screening (Lipid Panel) 02/08/2030 02/08/2025, 02/10/2024 Colorectal Cancer Screening: Colonoscopy 08/09/2035 08/09/2025 RSV Immunization Adult Patients (1 - 1-dose 75+ series) 2054 HIV Screening Completed 07/24/2021 Hepatitis C Screening Completed 07/24/2021 HIB Vaccines Aged Out No longer eligi ble based on patient's age to complete this topic Hepatitis A Vaccines Aged Out No long er eligible based on patient's age to complete this topic IPV Vaccines Aged Out No longer eligi ble based on patient's age to complete this topic MMR Vaccines Aged Out No longer eligi ble based on patient's age to complete this topic Meningococcal ACWY Vaccine Aged Out N o longer eligible based on patient's age to complete this topic Meningococcal B Vaccine Aged Out No l onger eligible based on patient's age to complete this topic Pneumococcal Vaccine: Pediatrics (0 to 5 Years) and At-Risk Patients (6 to 49 Years) Aged Out No longer eligible based on patient's age to complete this topic RSV Immunization Patients Under 20 months Aged Out No longer eligible based on patient's age to complete this topic Varicella Vaccines Aged Out No longer eligible based on patient's age to complete this topic Procedures Procedure Name Priority Date/Time Associated Diagnosis Comments POC URINE NON-AUTO W/O MICRO Routine 09/08/2025 10:52 AM EDT Dysuria CHLAMYDIA TRACHOMATIS AND NEISSERIA GONORRHOEAE PCR Routine 09/08/2025 10:52 AM EDT Urinary frequency Dysuria VAGINITIS PATHOGENS BY PCR Routine 09/08/2025 10:49 AM EDT Dysuria CULTURE URINE Routine 09/08/2025 10:49 AM EDT Dysuria COLONOSCOPY Routine 08/09/2025 8:36 AM EDT Abnormal UGI series Colon cancer screening S/P gastric sleeve procedure Nausea EGD Routine 08/09/2025 8:36 AM EDT Abnormal UGI series Colon cancer screening S/P gastric sleeve procedure Nausea TISSUE EXAM Routine 08/09/2025 8:32 AM EDT Abnormal UGI series Colon cancer screening S/P gastric sleeve procedure Nausea MG MAMMO DIAGNOSTIC ADDL VIEWS RIGHT Routine 03/14/2025 3:24 PM EDT Abnormal mammogram LIPID PANEL WITH REFLEX TO DIRECT LDL Routine 02/08/2025 9:42 AM EDT B12 deficiency Iron deficiency anemia due to chronic blood loss Shaking Dyslipidemia HM PAP SMEAR Routine 07/19/2024 HEPATITIS C SCREENING Routine 07/24/2021 HIV SCREENING Routine 07/24/2021 from Last 3 Months or Most Recently Relevant to Health Maintenance Results * Chlamydia trachomatis and Neisseria gonorrhoeae molecular study (09/08/2025 10:52 AM EDT) Pathologist [facility] Neisseria gonorrhoeae PCR Negative Negative LAB MOLECULAR DIAGNOSTICS METHOD 09/09/2025 9:25 AM EDT [facility] Chlamydia trachomatis PCR Negative Negative LAB MOLECULAR DIAGNOSTICS METHOD 09/09/2025 9:25 AM EDT [facility] Urine Urine specimen from urethra / Unknown Non-blood Collection / Unknown 09/08/2025 10:52 AM EDT 09/08/2025 10:52 AM EDT us Jesus REBOLLEDO LAB MICROBIOLOGY - GENERAL ORDER JAZ Final Result [facility] [address] [place] [address], * (ABNORMAL) POC Urine Non-Auto W/O Micro (09/08/2025 10:52 AM EDT) GLUCOSE POC Negative Negative, Trace mg/dL Leukocytes UA POC 1+(A) Negative mg/dL Nitrite UA POC Negative Urobilinogen UA POC 0.2 E.U./dL mg/dL Protein UA POC Positive Positive, Negative PH UA POC 7.0 LUPE/HM UA POC Trace(A) Negative Specific Sumner UA POC 1.015 Ketones UA POC Negative Negative Bilirubin UA POC Negative Negative Urine Urine specimen obtained by clean catch procedure / Unknown 09/08/2025 10:52 AM EDT us Jesus REBOLLEDO POINT OF CARE TEST ENTER/EDIT OR DERABLES Final Result * (ABNORMAL) Vaginitis pathogens molecular study (09/08/2025 10:49 AM EDT) Trichomonas vaginalis Negative Negative 09/09/2025 9:26 AM EDT [facility] Gardnerella vaginalis Positive(A) Negative 09/09/2025 9:26 AM EDT [facility] Belinda Species Negative Negative 9:26 AM EDT [facility] Swab Vaginal structure / Unknown Non-blood Collection / Unknown 09/08/2025 10:49 AM EDT 09/08/2025 10:49 AM EDT us Jesus REBOLLEDO LAB MICROBIOLOGY - GENERAL ORDER JAZ Final Result [facility] [address] [place] [address], * Culture urine (09/08/2025 10:49 AM EDT) Culture, Urine <10,000 CFU/mL gram negative bacilli, insignificant count, no further workup 09/09/2025 1:17 PM EDT [facility] Urine Urine specimen obtained by clean catch procedure / Unknown Non-blood Collection / Unknown 09/08/2025 10:49 AM EDT 09/08/2025 10:49 AM EDT us Jesus REBOLLEDO LAB MICROBIOLOGY - GENERAL ORDER JAZ Final Result [facility] [address] [place] [address], * COLONOSCOPY Anesthesia - MAC; [facility] ENDOSCOPY (08/09/2025 8:36 AM EDT) Anatomical Region Laterality Modality Other 08/09/2025 8:22 AM EDT Impressions 08/09/2025 8:28 AM EDT - Preparation of the colon was poor. - Stool in the sigmoid colon. - No specimens collected. Recommendation: - Repeat colonoscopy in 3 months for screening purposes and because the bowel preparation was suboptimal. Narrative 08/09/2025 8:28 AM EDT [facility] GI Patient Name: Brandon Espinoza Procedure Date: 08/09/2025 8:22 AM Date of : 1980 Age: 44 Room: ROOM 14 Gender: Female Note Status: Finalized Attending MD: Luis Felipe Ontiveros MD, Procedure Date No Time: 08/09/2025 Procedure: Colonoscopy Indications: Screening for colorectal malignant neoplasm Providers: Luis Felipe Ontiveros MD Referring MD: Luis Felipe Ontiveros MD Medicines: Propofol per Anesthesia Complications: No immediate complications. Estimated Blood Loss: Estimated blood loss: none. Procedure: Pre-Anesthesia Assessment: - ASA Grade Assessment: II - A patient with mild systemic disease. - ASA Grade Assessment: II - A patient with mild systemic disease. After I obtained informed consent, the scope was passed under direct vision. Throughout the procedure, the patient's blood pressure, pulse, and oxygen saturations were monitored continuously.The Colonoscope was introduced through the anus with the intention of advancing to the cecum. The scope was advanced to the sigmoid colon before the procedure was aborted. Medications were given. The colonoscopy was performed without difficulty. The patient tolerated the procedure well. The quality of the bowel preparation was poor. Findings: The perianal and digital rectal examinations were normal. Copious quantities of solid stool was found in the sigmoid colon, precluding visualization. Procedure Code(s): --- Professional --- G0121, 53, Colorectal cancer screening; colonoscopy on individual not meeting criteria for high risk Diagnosis Code(s): --- Professional --- Z12.11, Encounter for screening for malignant neoplasm of colon CPT copyright 2020 [employer]. All rights reserved. The codes documented in this report are preliminary and upon sheet manager review may be revised to meet current compliance requirements. Luis Felipe Ontiveros MD 08/09/2025 8:28:42 AM This report has been signed electronically.Luis Felipe Ontiveros MD Number of Addenda: 0 Note Initiated On: 08/09/2025 8:22 AM Scope In: Scope Out: Endoscopy Department at [facility] - [address] [place] [id number] Procedure Note Luis Felipe Ontiveros MD - 08/09/2025 [facility] GI Patient Name: Brandon Espinoza Procedure Date: 08/09/2025 8:22 AM Date of : 1980 Age: 44 Room: ROOM 14 Gender: Female Note Status: Finalized Attending MD: Luis Felipe Ontiveros MD, Procedure Date No Time: 08/09/2025 Procedure: Colonoscopy Indications: Screening for colorectal malignant neoplasm Providers: Luis Felipe Ontiveros MD Referring MD: Luis Felipe Ontiveros MD Medicines: Propofol per Anesthesia Complications: No immediate complications. Estimated Blood Loss: Estimated blood loss: none. Procedure: Pre-Anesthesia Assessment: - ASA Grade Assessment: II - A patient with mild systemic disease. - ASA Grade Assessment: II - A patient with mild systemic disease. After I obtained informed consent, the scope was passed under direct vision. Throughout theprocedure, the patient's blood pressure, pulse, and oxygen saturations were monitored continuously.The Colonoscope was introduced through the anus withthe intention of advancing to the cecum. The scope was advanced to the sigmoid colon before the procedurewas aborted. Medications were given. The colonoscopywas performed without difficulty. The patient tolerated the procedure well. The quality of the bowel preparation was poor. Findings: The perianal and digital rectal examinations were normal. Copious quantities of solid stool was found in the sigmoid colon, precluding visualization. Procedure Code(s): --- Professional --- G0121, 53, Colorectal cancer screening; colonoscopyon individual not meeting criteria for high risk Diagnosis Code(s): --- Professional --- Z12.11, Encounter for screening for malignantneoplasm of colon CPT copyright 2020 [employer]. All rights reserved. The codes documented in this report are preliminary and upon sheet manager reviewmay be revised to meet current compliance requirements. Luis Felipe Ontiveros MD 08/09/2025 8:28:42 AM This report has been signed electronically.Luis Felipe Ontiveros MD Number of Addenda: 0 Note Initiated On: 08/09/2025 8:22 AM Scope In: Scope Out: Endoscopy Department at [facility] - [address] [place] [phone] IMPRESSION: - Preparation of the colon was poor. - Stool in the sigmoid colon. - No specimens collected. Recommendation: - Repeat colonoscopy in 3 months for screening purposes and because the bowel preparation was suboptimal. Luis Felipe Ontiveros MD GI~PROCEDURE ORDERABLES Fin al Result * EGD Anesthesia - MAC; [facility] ENDOSCOPY (08/09/2025 8:36 AM EDT) Anatomical Region Laterality Modality Other 08/09/2025 8:28 AM EDT Impressions 08/09/2025 8:37 AM EDT - Normal esophagus. - A sleeve gastrectomy was found, characterized by healthy appearing mucosa. - Gastritis. Biopsied. - Normal examined duodenum. Recommendation: - Await pathology results. - Continue present medications. Narrative 08/09/2025 8:37 AM EDT [facility] GI Patient Name: Brandon Espinoza Procedure Date: 08/09/2025 8:28 AM Date of : 1980 Age: 44 Room: ROOM 14 Gender: Female Note Status: Finalized Attending MD: Luis Felipe Ontiveros MD, Procedure Date No Time: 08/09/2025 Procedure: Upper GI endoscopy Indications: Epigastric abdominal pain, Abnormal UGI series Providers: Luis Felipe Ontiveros MD Referring MD: Luis Felipe Ontiveros MD Medicines: Propofol per Anesthesia Complications: No immediate complications. Estimated Blood Loss: Estimated blood loss: none. Procedure: Pre-Anesthesia Assessment: - ASA Grade Assessment: II - A patient with mild systemic disease. After obtaining informed consent, the endoscope was passed under direct vision. Throughout the procedure, the patient's blood pressure, pulse, and oxygen saturations were monitored continuously.The Endoscope was introduced through the mouth, and advanced to the second part of duodenum. The upper GI endoscopy was accomplished without difficulty. The patient tolerated the procedure well. Findings: The esophagus was normal. Evidence of a sleeve gastrectomy was found in the stomach. This was characterized by healthy appearing mucosa. Localized mild inflammation characterized by congestion (edema), erythema and granularity was found in the gastric body. Biopsies were taken with a cold forceps for histology. The exam of the stomach was otherwise normal. There was no stricture. The examined duodenum was normal. Procedure Code(s): --- Professional --- 59983, Esophagogastroduodenoscopy, flexible, transoral; with biopsy, single or multiple Diagnosis Code(s): --- Professional --- Z98.84, Bariatric surgery status K29.70, Gastritis, unspecified, without bleeding R93.3, Abnormal findings on diagnostic imaging of other parts of digestive tract R10.13, Epigastric pain CPT copyright 2020 [employer]. All rights reserved. The codes documented in this report are preliminary and upon sheet manager review may be revised to meet current compliance requirements. Luis Felipe Ontiveros MD 08/09/2025 8:37:00 AM This report has been signed electronically.Luis Felipe Ontiveros MD Number of Addenda: 0 Note Initiated On: 08/09/2025 8:28 AM Scope In: Scope Out: Endoscopy Department at [facility] - [address] [place] [phone] Procedure Note Luis Felipe Ontiveros MD - 08/09/2025 [facility] GI Patient Name: Brandon Espinoza Procedure Date: 08/09/2025 8:28 AM Date of : 1980 Age: 44 Room: ROOM 14 Gender: Female Note Status: Finalized Attending MD: Luis Felipe Ontiveros MD, Procedure Date No Time: 08/09/2025 Procedure: Upper GI endoscopy Indications: Epigastric abdominal pain, Abnormal UGI series Providers: Luis Felipe Ontiveros MD Referring MD: Luis Felipe Ontiveros MD Medicines: Propofol per Anesthesia Complications: No immediate complications. Estimated Blood Loss: Estimated blood loss: none. Procedure: Pre-Anesthesia Assessment: - ASA Grade Assessment: II - A patient with mild systemic disease. After obtaining informed consent, the endoscope was passed under direct vision. Throughout theprocedure, the patient's blood pressure, pulse, and oxygen saturations were monitored continuously.TheEndoscope was introduced through the mouth, and advanced tothe second part of duodenum. The upper GI endoscopy was accomplished without difficulty. The patienttolerated the procedure well. Findings: The esophagus was normal. Evidence of a sleeve gastrectomy was found in the stomach. This was characterized by healthyappearing mucosa. Localized mild inflammation characterized by congestion (edema), erythema and granularity wasfound in the gastric body. Biopsies were taken with acold forceps for histology. The exam of the stomach was otherwise normal. There was no stricture. The examined duodenum was normal. Procedure Code(s): --- Professional --- 63427, Esophagogastroduodenoscopy, flexible, transoral; with biopsy, single or multiple Diagnosis Code(s): --- Professional --- Z98.84, Bariatric surgery status K29.70, Gastritis, unspecified, without bleeding R93.3, Abnormal findings on diagnostic imaging of other parts of digestive tract R10.13, Epigastric pain CPT copyright 2020 [employer]. All rights reserved. The codes documented in this report are preliminary and upon sheet manager reviewmay be revised to meet current compliance requirements. Luis Felipe Ontiveros MD 08/09/2025 8:37:00 AM This report has been signed electronically.Luis Felipe Ontiveros MD Number of Addenda: 0 Note Initiated On: 08/09/2025 8:28 AM Scope In: Scope Out: Endoscopy Department at [facility] - [address] [place] [phone] IMPRESSION: - Normal esophagus. - A sleeve gastrectomy was found, characterized by healthy appearing mucosa. - Gastritis. Biopsied. - Normal examined duodenum. Recommendation: - Await pathology results. - Continue present medications. us Luis Felipe Ontiveros MD GI~PROCEDURE ORDERABLES Fin al Result * Tissue exam (08/09/2025 8:32 AM EDT) Final Diagnosis Stomach, gastric body biopsies : Oxyntic type gastric mucosa with changes suggestive of PPI effect. No Helicobacter pylori type gastritis identified. 08/12/2025 9:29 AM EDT [facility] at 0929 EDT Gross Description A. Stomach, biopsies gastric body: Labeled biopsies stomach . Received in formalin are two soft, mahoney-red tissue fragments measuring approximately 0.25 cm in greatest diameter, which are wrapped in paper and submitted in toto in one cassette, two pieces, multiple levels. TS 08/12/2025 9:29 AM EDT [facility] Disclaimer Unless otherwise specified, all tissue is 10% NB formalin fixed and paraffin embedded. 08/12/2025 9:29 AM EDT [facility] Tissue Stomach structure / Unknown 08/09/2025 8:32 AM EDT 08/09/2025 10:34 AM EDT us Luis Felipe Ontiveros MD LAB PATHOLOGY ORDERABLES Fi nal Result [facility]) [facility] [address] [place] [address], * MG Mammo Diagnostic Addl Views Right (03/14/2025 3:24 PM EDT) Anatomical Region Laterality Modality Breast Right Mammography 03/14/2025 3:26 PM EDT Impressions 03/14/2025 3:43 PM EDT Benign. Findings and recommendations were conveyed to the patient. BI-RADS CATEGORY: 2 - BENIGN RECOMMENDATION: Return to annual mammography. Return to annual mammography. Return to annual mammography. Return to annual mammography. Mammo Location: [facility], [address] [place] [address], [address], . -------- FINAL REPORT -------- Dictated By: Angelic Watts Dictated Date: 03/14/2025 15:26 ET Assigned Physician: Angelic Watts Reviewed and Electronically Signed By: Angelic Watts Signed Date: 03/14/2025 15:43 ET Workstation ID: [id number] Transcribed By: Self Edit Transcribed Date: 03/14/2025 15:40 ET Narrative 03/14/2025 3:43 PM EDT CLINICAL: 44 years old, Female, focal asymmetries in the upper outer and lower inner right breast. History remote reduction mammoplasty. COMPARISON: Mammograms 02/28/2025 and 02/11/2024. FINDINGS: MAMMOGRAPHY TECHNIQUE: ML, spot compression MLO, and spot compression CC views of the right breast were obtained digitally with 3-D mammogram (digital breast tomosynthesis). Computer-aided detection was utilized in evaluation of this exam (CAD). Focal asymmetry in the upper right breast partially effaces. Focal asymmetry in the anterior lower right breast is a persistent finding. BREAST DENSITY: B - There are scattered areas of fibroglandular density. ULTRASOUND TECHNIQUE: Ultrasound survey evaluation of the upper outer right breast and lower inner right breast was performed. There is no evidence of morphologically suspicious mass. There is a 1.4 x 1.1 x 0.2 cm septated cyst versus cluster of tiny cysts at the 10 o'clock position 6 cm from the nipple, and this corresponds to the focal asymmetry in the upper-outer right breast. No ultrasound abnormality is seen in the medial lower right breast, and the mammographic finding likely represents postoperative scarring. Procedure Note Angelic Watts MD - 03/14/2025 CLINICAL: 44 years old, Female, focal asymmetries in the upper outer andlower inner right breast. History remote reduction mammoplasty. COMPARISON: Mammograms 02/28/2025 and 02/11/2024. FINDINGS: MAMMOGRAPHY TECHNIQUE: ML, spot compression MLO, and spot compression CC views of theright breast were obtained digitally with 3-D mammogram (digital breasttomosynthesis). Computer-aided detection was utilized in evaluation ofthis exam (CAD). Focal asymmetry in the upper right breast partially effaces. Focalasymmetry in the anterior lower right breast is a persistent finding. BREAST DENSITY: B - There are scattered areas of fibroglandular density. ULTRASOUND TECHNIQUE: Ultrasound survey evaluation of the upper outer right breastand lower inner right breast was performed. There is no evidence of morphologically suspicious mass. There is a 1.4 x 1.1 x 0.2 cm septated cyst versus cluster of tiny cystsat the 10 o'clock position 6 cm from the nipple, and this corresponds tothe focal asymmetry in the upper-outer right breast. No ultrasound abnormality is seen in the medial lower right breast, andthe mammographic finding likely represents postoperative scarring. IMPRESSION: Benign. Findings and recommendations were conveyed to the patient. BI-RADS CATEGORY: 2 - BENIGN RECOMMENDATION: Return to annual mammography. Return to annual mammography. Return toannual mammography. Return to annual mammography. Mammo Location: [facility], [address] [place] [address], [address], . -------- FINAL REPORT -------- Dictated By: Angelic Watts Dictated Date: 03/14/2025 15:26 ET Assigned Physician: Angelic Watts Reviewed and Electronically Signed By: Angelic Watts Signed Date: 03/14/2025 15:43 ET Workstation ID: [id number] Transcribed By: Self Edit Transcribed Date: 03/14/2025 15:40 ET us Amanda Bethea MD IM BI PROCEDURES Final Result * Lipid panel with reflex to direct LDL (02/08/2025 9:42 AM EDT) Cholesterol 142 0 - 200 mg/dL LAB CHEMISTRY METHOD 02/08/2025 2:23 PM EDT [facility] Triglycerides 68 0 - 150 mg/dL LAB CHEMISTRY METHOD 02/08/2025 2:23 PM EDT [facility] HDL 55 >=40 mg/dL LAB CHEMISTRY METHOD 02/08/2025 2:23 PM EDT [facility] LDL Calculated 73 0 - 100 mg/dL LAB CHEMISTRY METHOD 02/08/2025 2:23 PM [facility] VLDL Cholesterol Sergei 13.6 mg/dL LAB CHEMISTRY METHOD 02/08/2025 2:23 PM EDT [facility] Non HDL Chol. (LDL+VLDL) 87 <145 mg/dL LAB CHEMISTRY METHOD 02/08/2025 2:23 PM EDT [facility] Chol/HDL Ratio 2.6 0.0 - 4.4 LAB CHEMISTRY METHOD 02/08/2025 2:23 PM EDT [facility] Blood Venous blood specimen / Unknown Venipuncture / Unknown 02/08/2025 9:42 AM EDT 02/08/2025 9:42 AM EDT Amanda Bethea MD LAB BLOOD ORDERABLES Final Resul t [facility] [address] [place] [address], [place] [phone] * Pap Smear (07/19/2024) Pap smear Abstracted, Negative Historical [facility] HEALTH MAINTENANCE Final Result * HIV Screening (07/24/2021) Pathologist [facility] HIV Screening Abstracted Historical Provider HEALTH MAINTENANCE Final Result * Hepatitis C Screening (07/24/2021) Pathologist [facility] Hepatitis C Screening Abstracted Historical Provider HEALTH MAINTENANCE Final Result from Last 3 Months or Most Recently Relevant to Health Maintenance Insurance * Guarantor: Brandon Espinoza Account Type Relation to Patient Date of Phone Billing Address Personal/Family Self 1980 [phone] (Work) [address] [place] [address] [employer] Care Teams Print Finisher Relationship Specialty Start Date End Date Amanda Bethea MD [address] [place] [phone] PCP - General Internal Medicine 05/05/22
--- OUTSIDE RECORDS SUMMARY | 2025-10-04 22:33 | XMS_ITS | Clinical Summary ---
Author Organization [facility] Address [address] [place] [phone] Phone Care Team Providers Care Parts Puller Name Role Phone Amanda Bethea MD Primary Care Provider [phone] Allergies No known active allergies Medications citalopram (CELEXA) 20 MG tablet 02/07/2024 Active FERROUS SULFATE, BULK, MISC Active Active Problems Problem Noted Date Diagnosed Date Skin laxity 08/07/2024 Pannus, abdominal 08/07/2024 Family History Medical History Relation Comments Heart disease Mother Relation Status Comments Father Alive Mother Social History Tobacco Use Types Packs/Day Years Used Date Smoking Tobacco: Never Smokeless Tobacco: Never Tobacco Cessation:Counseling Given: Not Answered Alcohol Use Standard Drinks/Week Comments Yes 0 (1 standard drink = 0.6 oz pur e alcohol) > 7 weekly Education Answer Date Recorded Are you interested in more education? Not on talha e 06/08/2024 Are you concerned about learning? Not on file 06/08/2024 No 06/08/2024 No 06/08/2024 Digital Access Answer Date Recorded No 06/08/2024 No 06/08/2024 Reliable internet access at home? Not on file 06/08/2024 Device with a working camera? Not on file Comments Unknown Sex and Gender Information Value Date Recorded Sex Assigned at Female 08/01/2024 11:58 AM EDT Legal Sex Female 9:35 AM EDT Gender Identity Female 08/01/2024 11:58 AM EDT Sexual Orientation Straight 08/01/2024 4: 16 PM EDT Last Filed Vital Signs Vital Sign Reading Time Taken Comments Blood Pressure 104/68 08/07/2024 9:05 AM EDT Pulse 83 08/07/2024 9:05 AM EDT Temperature - - Respiratory Rate - - Oxygen Saturation - - Inhaled Oxygen Concentration - - Weight 67.9 kg (149 lb 9.6 oz) 08/07/2024 9:05 A M EDT Height 154.9 cm (5' 1 ) 08/07/2024 9:05 AM EDT Body Mass Index 28.27 08/07/2024 9:05 AM EDT Plan of Treatment Health Maintenance Due Date Last Done Comments Adult Td,Tdap Booster 1980 LIPID PANEL 1980 DEPRESSION SCREENING 1991 HEPATITIS C SCREENING 1997 HIV ONE-TIME SCREENING (18-6 5 YEARS) 1997 PAP SMEAR 2000 SCREENING FOR DIABETES 2014 MAMMOGRAM 2019 COLOGUARD 2024 COLONOSCOPY 2024 COLORECTAL CANCER SCREENING 2024 FIT TEST 2024 FOBT 2024 SIGMOIDOSCOPY 2024 VIRTUAL COLONOSCOPY 2024 INFLUENZA VACCINE (#1) 2025 COVID-19 VACCINE (1 - 2024-2 6 season) 2025 SMOKING STATUS SCREENING (On ce After 26 Yrs) Completed 08/07/2024 HEPATITIS A VACCINES Aged Out No long er eligible based on patient's age to complete this topic HIB VACCINES Aged Out No longer eligi ble based on patient's age to complete this topic MENINGOCOCCAL VACCINES (ACWY) Aged Out No longer eligible based on patient's age to complete this topic MENINGOCOCCAL VACCINES (B) Aged Out N o longer eligible based on patient's age to complete this topic PNEUMOCOCCAL VACCINES (0-49 years) Aged Out No longer eligible based on patient's age to complete this topic Medical Devices Not on file Insurance GENERIC COMMERCIAL GENERIC COMMERCIAL GENERIC COMMERCIAL GENERIC COMMERCIAL GENERIC COMMERCIAL GENERIC COMMERCIAL Care Teams Parts Puller Relationship Specialty Start Date End Date Amanda Bethea MD [address] [place] [phone] PCP - General Internal Medicine 08/07/24 Additional Source Comments The information contained in this document represents components of the legal health record. It is not the complete legal health record.[facility]
--- OUTSIDE RECORDS SUMMARY | 2025-10-04 22:34 | XMS_ITS | Patient Health Record ---
Author Organization [employer] [facility] Address [address] [place] [address] Care Team Providers Care Supervisor Polishing Name Role Phone DENI UY M.D. Primary Care Provider Unavail able YONATHAN ESTRADA Unavailable [phone] Allergies No Known Allergies Reason For Referral No Information Medications Medication SIG (Take, Route, Frequency, Duration) [...] X 5; Duration: 5 days 08/30/2024 Active Social History Tobacco Use: Social History Observation Description Date Details (start date - stop date) Never Smoker NA - NA Sexual History Question Answer Notes Had sex in the past 12 months (vaginal, oral, or anal)? Yes with Men only Prevention strategies discussed: Other AUDIT-C (Standard) Question Answer Notes Did you have a drink contain ing alcohol in the past year? Yes How often did you have six o r more drinks on one occasion in the past year? Never (0 point) How many drinks did you have on a typical day when you were drinking in the past year? 1 or 2 drinks (0 point) How often did you have a dri nk containing alcohol in the past year? Monthly or less (1 point) Points 1 Interpretation Negative Tobacco Control (Standard) Question Answer Notes Tobacco use: Nonsmoker Problems Problem Type SNOMED Code ICD Code Onset Dates Problem Status W/U Status Risk Notes Problem Excessive and frequent menstruation (664580646) Excessive and frequent menstruation with regular cycle (N92.0) Active confirmed Problem Human papilloma virus deoxyribonucleic acid test positive, high risk on vaginal specimen (122308192094874) Cervical high risk human papillomavirus (HPV) DNA test positive (R87.810) Active confirmed Problem Hypertrophy of uterus (696287821) Hypertrophy of uterus (N85.2) Active confirmed Problem Polycystic ovary syndrome (disorder) (177730174) Polycystic ovarian syndrome (E28.2) Active confirmed Problem Panic disorder (009508576) Panic disorder [episodic paroxysmal anxiety] (F41.0) Active confirmed Problem COVID-19 (501787330) COVID-19 (U07.1) Active confirmed Encounters Encounter Location Date Provider Diagnosis [address] [place] [address] 10/16/2024 YONATHAN ESTRADA Excessive and freque nt [...] =7%), muscle spasm (=7%) Plan Of Treatment Pending Test Test Name Order Date ULTRASOUND: PELVIC W/TRANSVAGINAL 2023 MM Digital Screening Mammogram 3D 2023 [id number] 07/05/2024 HBsAg Screen-[id number] 07/05/2024 HIV Ab/p24 Ag with Reflex-[id number] 024 HCV Antibody-[id number] 07/05/2024 Insurance Providers Payer Name Payer Address Payer Phone Subscriber Number Group Number Insured Name Patient Relationship to Insured Coverage Start Date Coverage End Date [employer] [address] [place] [phone] [id number] ENOCH SAMUELS Self - patient is the insured Medical (General) History Medical History History ICD Code Panic disorder [episodic paroxysmal anxi ety] F41.0 Polycystic ovarian syndrome E28.2 COVID-19 U07.1 Cervical high risk human papillomavirus (HPV) DNA test positive R87.810 Hypertrophy of uterus N85.2 Atypical squamous cells of u ndetermined significance on cytologic smear of cervix (ASC-US) R87.610 Chlamydial infection, unspecified A74.9 Surgical History Surgery Date(Month/Year) Section Gastric Sleeve 07/2022 Breast reduction 2013 Hospitalization History Reason Date(Month/Year) childbirth
--- OUTSIDE RECORDS SUMMARY | 2025-10-04 22:34 | XMS_ITS | Encounter Summary ---
Author Organization [facility] Address [address] [place] [address] Care Team Providers Care Pediatrician/Medical Doctor Name Role Phone Amanda Bethea MD Primary Care Provider [phone] Encounter Details Date Type Department Care Team ([facility] st Contact Info) Description 08/12/2025 Results Follow-Up Gastroenterology - [address] [place] [phone] Angela Buckner MA Social History Tobacco Use Types Packs/Day Years [...] on file documented as of this encounter Progress Notes * Suzi Wilson - 08/13/2025 8:20 AM EDT ----- Message from Suzi Wilson sent at 08/13/2025 8:14 AM EDT ----- ----- Message ----- From: Angela Buckner MA Sent: 08/12/2025 12:40 PM EDT To: [facility] 299 Procedure S# 3 months repeat colon ----- Message ----- From: Luis Felipe Ontiveros MD Sent: 08/09/2025 11:24 AM EDT To: [facility] Gastroenterology 299 Clinical Po# She needs to repeat colon with small volume prep in about 3 months ty * Suzi Wilson - 08/13/2025 8:16 AM EDT ----- Message from Suzi Wilson sent at 08/13/2025 8:14 AM EDT ----- ----- Message ----- From: Angela Buckner MA Sent: 08/12/2025 12:40 PM EDT To: [facility] Gastroenterology 299 Procedure S# 3 months repeat colon ----- Message ----- From: Luis Felipe Ontiveros MD Sent: 08/09/2025 11:24 AM EDT To: [facility] Gastroenterology 299 Clinical Po# She needs to repeat colon with small volume prep in about 3 months ty * Suzi Wilson - 08/13/2025 8:14 AM EDT ----- Message from Angela Herring MA sent at 08/12/2025 12:40 PM EDT ----- 3 months repeat colon ----- Message ----- From: Luis Felipe Ontiveros MD Sent: 08/09/2025 11:24 AM EDT To: [facility] Gastroenterology 299 Clinical Po# She needs to repeat colon with small volume prep in about 3 months ty documented in this encounter Plan of Treatment Upcoming Encounters Date Type Department Care Team (Late st Contact Info) Description 03/06/2026 4:20 PM EDT Appointment Radiology Department [address] [phone] documented as of this encounter Visit Diagnoses Not on filedocumented in this encounter Care Teams Pediatrician/Medical Doctor Relationship Specialty Start Date End Date Amanda Bethea MD [address] [place] [phone] PCP - General Internal Medicine 05/05/22 documented as of this encounter
--- OUTSIDE RECORDS SUMMARY | 2025-10-04 22:34 | XMS_ITS | Encounter Summary ---
Author Organization [facility] Address [address] [place] [address] Care Team Providers Care Wedger And Gluer Name Role Phone Amanda Bethea MD Primary Care Provider [phone] Encounter Details Date Type Department Care Team ([facility] Contact Info) Description 08/12/2025 Results Follow-Up Gastroenterology - [address] [phone] Luis Felipe Ontiveros MD [address] [place] [address] Social History Tobacco Use Types Packs/Day Years [...] Upcoming Encounters Date Type Department Care Team ([facility] Contact Info) Description 03/06/2026 4:20 PM EDT Appointment Radiology Department [address] [phone] documented as of this encounter Visit Diagnoses Not on filedocumented in this encounter Care Teams Wedger And Gluer Relationship Specialty Start Date End Date Amanda Bethea MD [address] [place] [phone] PCP - General Internal Medicine 05/05/22 documented as of this encounter
--- OUTSIDE RECORDS SUMMARY | 2025-10-04 22:34 | XMS_ITS | Encounter Summary ---
Author Organization [facility] Address [address] [place] [address] Care Team Providers Care Oil Prospecting Observer Name Role Phone Amanda Bethea MD Primary Care Provider [phone] Reason for Visit * Reason Onset Date Comments Results 09/10/2025 Encounter Details Date Type Department Care Team ([facility] st Contact Info) Description 09/10/2025 Telephone Walk-In Clinic - [address] [phone] Jesus Ramsey PA [address] [place] [phone] Social History Tobacco Use Types Packs/Day Years [...] as of this encounter Progress Notes * Claudia Dorman MA - 09/10/2025 2:49 PM EDT Patient returned my call and I inforemd her with Henna Villagomez and Haja Buchanan's message. Patient aware and agreed. * Claudia Dorman MA - 09/10/2025 2:03 PM EDT Called patient and left message on answering machine to call daniella . * Sydney Villagomez NP - 09/10/2025 12:45 PM EDT Urine culture negative for UTI * Arminda Patel - 09/10/2025 9:53 AM EDT Was seen Tuesday for UTI looking for test results. [phone] documented in this encounter Plan of Treatment Upcoming Encounters Date Type Department Care Team (Late st Contact Info) Description 03/06/2026 4:20 PM EDT Appointment Radiology Department - [address] [phone] documented as of this encounter Visit Diagnoses Not on filedocumented in this encounter Care Teams Oil Prospecting Observer Relationship Specialty Start Date End Date Amanda Bethea MD [address] [place] [address] PCP - General Internal Medicine 05/05/22 documented as of this encounter
[2025-10-04 22:57] VITALS: BP 136/81; PULSE 88; RESP 18; TEMP 36.4; O2SAT 99
== END 2025-10-04 23:01 | disposition home or self-care (01) ==
PROVIDERS: Emergency Provider Emergency Medicine
DX: L03.011 Cellulitis of right finger (principal); Z79.899 Other long term (current) drug therapy
CPT/HCPCS: 96372; 99283; 99284; J1885